=== PATIENT | male | born 1940 | race Caucasian/White ===

== ENCOUNTER 2024-10-04 00:58 | Inpatient (IN) | payer MEDICARE, SELFPAY ==
[2024-10-03 22:19] VITALS: BP 102/53
[2024-10-03 22:28] LABS: Glucose - Point of Care 470 mg/dl (70-99)
[2024-10-03 22:32] LABS: % Basophils 0.3 % (0-2); % Immature Granulocytes 0.5 % (0-0.5); % Lymphocytes 4.6 % (20.5-51.1); % Monocytes 5.6 % (1.7-9.3); Absolute Immature Granulocytes 0.1 10^3/uL (0-0.05); Absolute Lymphocytes 0.5 10^3/uL (1.2-3.4); Absolute Monocytes 0.6 10^3/uL (0.1-0.6); Absolute Neutrophils 9.8 10^3/uL (1.4-6.5); Hematocrit 43.7 % (39.0-52.0); Hemoglobin 14.3 g/dL (13.0-18.0); Mean Corp Hgb Conc. 32.7 g/dL (33.0-37.0); Mean Corpuscular Hgb 31.3 pg (27.0-31.0); Mean Corpuscular Volume 95.6 fL (80.0-94.0); Mean Platelet Volume 9.5 fL (7.4-10.4); Nucleated Red Blood Cells % 0 % (-); Platelet Count 233 10^3/uL (130-400); Red Blood Cell Count 4.57 10^6/uL (4.70-6.10); Red Cell Dist. Width 14.5 % (11.5-14.5); White Blood Cell Count 11.1 10^3/uL (4.8-10.8)
[2024-10-03 22:40] VITALS: BP 107/51
[2024-10-03 22:59] LABS: AST (SGOT) 37 U/L (17-59); Albumin 4.7 g/dl (3.5-5.0); Alkaline Phosphatase 106 U/L (38-126); Blood Urea Nitrogen 36 mg/dl (9-20); Calcium 9.8 mg/dl (8.4-10.2); Carbon Dioxide 9 mmol/L (22-30); Chloride 92 mmol/L (98-107); Glucose 485 mg/dl (70-99); Potassium 4.9 mmol/L (3.5-5.1); Sodium 127 mmol/L (135-145); Total Protein 6.6 g/dl (6.3-8.2); eGFR 46.19
[2024-10-03 23:29] LABS: ALT (SGPT) 37 U/L (0-50)
--- NOTE | 2024-10-03 23:32 | ED.GENMED ---
History of Present Illness
General
Chief Complaint: Blood Sugar Problem
Source: patient and family
Exam Limitations: none
Time Seen by Provider: 10/03/24 23:12
Nursing documentation reviewed up to this point in time: agreed with
History of Present Illness
History of Present Illness:
84-year-old male with past medical history of hyperlipidemia, atrial fibrillation, longstanding history of insulin-dependent diabetes on insulin pump presents to the emergency room for evaluation of hyperglycemia, abdominal discomfort and malaise.
Patient reports symptoms started 2 days ago and have been constant since that time. He reports his sugars have been trending upwards�he said previously sugars have never been higher than 280 and recently they have been 300+. Today sugars were over
500. He says that he is currently in the process of changing to a new insulin pump and thinks that his old pump may have been malfunctioning. He reports epigastric pain, myalgias, fatigue. He reports mild nausea. Reports mild dizziness. No
vomiting. No diarrhea. Denies polyuria and in fact reports decreased urine output. He has not any fevers, chills, cough, chest pain, shortness of breath or any other complaints. Follows with Dr. Wilcox for endocrinology.
Past History
Past History
ED Past Medical History: Arrthythmia (Paroxysmal atrial fibrillation), CAD, Cancer (Skin CA), Hypercholesterolemia, IDDM (Insulin pump), Hypothyroidism and Other (Skin cancer, colon polyps)
ED Past Surgical History: Cardiac (Ablation) and Other (Partial thyroidectomy)
Social History
Tobacco: Non-smoker
Alcohol: Daily (Beer 1-2)
Drug: None
Personal:
Living: with family
Employment: Retired
Family History
Family History: CAD; Negative Early CAD or Sudden
Review of Systems
Review of Systems
All Other Systems: ROS reviewed and negative except as documented in HPI and ROS
Constitutional: Reports fatigue; Denies fever or chills
EENT: Denies sore throat or runny nose
Respiratory: Denies cough or trouble breathing
Cardiac: Denies chest pain or palpitations
ABD/GI: Reports abdominal pain and nausea; Denies vomiting or diarrhea
: Denies flank pain
Musculoskeletal: Reports muscle pain (Myalgias); Denies neck pain or back pain
Neurological: Denies dizzy or headache
Phy Exam
Physical Exam
Physical Exam:
General: Awake, alert, oriented x3; no acute distress
Head: Normocephalic, atraumatic
Eyes: Conjunctiva normal, sclera anicteric
Throat: Airway intact, dry mucous membranes
Neck: Trachea midline, supple without meningismus
Lungs: Clear to auscultation bilaterally, no wheezing, rales, rhonchi
Heart: Regular rate and rhythm, no murmurs, gallops, or rubs
Abd: Soft, non distended, tender in the epigastrium
Neuro: No gross deficit
Skin: no rash
Extremities: Warm well-perfused with no edema
Scores
Heart Failure Risk
Heart Failure Risk Score: Not Applicable
Heart Score for Chest Pain Patients
STEMI patient?: Not applicable
Withdrawal Assessment of Alcohol
Withdrawal Assessment Completed?: Not applicable
Course
Orders/Labs/Results
Orders:
Orders
10/03/24 22:25
B-Hydroxybutyrate Urgent
Complete Blood Count/With Diff Urgent
Comprehensive Metabolic Panel Urgent
Lipase Urgent
Comment: ADDED
10/03/24 22:42
Electrocardiogram (*1) Urgent
Reason for Study: Chest Pain
EKG- Treatment ONCE
10/03/24 23:00
KCl 20 Meq/0.9%Sodchl 1000 ml [NSS with KCL 20 MEQ] 20 meq in 1,000 ml IV 250 mls/hr
10/03/24 23:13
Urinalysis Reflex To Culture Urgent
Date Specimen was Collected: 10/04/24
Time Specimen was Collected: 00:37
10/03/24 23:14
0.9% Sodium Chloride 1000 ml [Nss] 1,000 ml IV BOLUS
10/03/24 23:16
Bedside Glucose- Treatment Q1H
Lactated Ringers [Lr] 1,000 ml IV BOLUS
10/03/24 23:23
Venous Blood Gas Urgent
%Oxygen/Room Air: 96
10/03/24 23:28
HYDROmorphone [Dilaudid] 0.5 mg IV NOW STA
Insulin Human Regular [Novolin R] 8 units IV NOW STA
10/03/24 23:30
Add On- LAB Urgent
Tests Added?: lipase
Basic Metabolic Panel Q2H
10/03/24 23:31
Reg Insulin 100 Units/100 ml [Novolin R Insulin Infusion] 100 units in 100 ml IV NOW
10/03/24 23:37
COVID-19 Antigen Urgent
Source: Nasal Swab
Troponin I Urgent
Influenza A+B Rapid Molecular Urgent
NIKI Source: Nasal Swab
Specimen Description:
10/04/24 00:30
CT Abd/pelvis W Iv Cont Urgent
Reason For Exam: upper abd pain, DKA
10/04/24 00:44
Admit/Transfer Patient As Directed
Co-Sign Provider:
Level of Care: Inpatient admission
Assign to:: IMU- Intermediate Care
Physician / Group: hospitalist
Diagnosis: DKA
Reason for Hospitalization: DKA
Expected length of stay greater than two midnights?: Yes
ELOS- Estimated Length of Stay in days: 2
I certify the patient meets the requirements for IP care: Yes
PRN Pain Medication Management As Directed
May give lesser potent ordered pain med per pt: Yes
preference::
Protocol:: Medication orders for pain may be administered in a
manner that supports deferring to patient preference
when the pt is:
- Requesting an ordered lesser potent pain medication.
Least to most potent pain medications are defined
as: acetaminophen < NSAID < tramadol < opioids
(morphine, oxycodone, hydromorphone).
- Requesting a lesser dose of the same medication IF
ORDERED.
- Requesting a less intrusive route of administration
if both routes are prescribed by the provider (PO <
IV).
10/04/24 00:46
Code Status As Directed
Resuscitation Status: Full Code
10/04/24 02:16
Basic Metabolic Panel Q2H
10/04/24 03:30
Basic Metabolic Panel Q2H
Abnormal Lab Results
10/03/24 10/03/24 10/03/24
22:22 22:25 23:23
WBC 11.1 H 10^3/uL
(4.8-10.8)
RBC 4.57 L 10^6/uL
(4.70-6.10)
MCV 95.6 H fL
(80.0-94.0)
MCH 31.3 H pg
(27.0-31.0)
MCHC 32.7 L g/dL
(33.0-37.0)
Abs Immat Gran (auto) 0.1 H 10^3/uL
(0-0.05)
Absolute Neuts (auto) 9.8 H 10^3/uL
(1.4-6.5)
Absolute Lymphs (auto) 0.5 L 10^3/uL
(1.2-3.4)
Neutrophils % 89.0 H %
(42.2-75.2)
Lymphocytes % 4.6 L %
(20.5-51.1)
VBG pH 7.23 L
(7.32-7.43)
VBG pO2 54 H mmHg
(30-50)
VBG HCO3 14.7 L mmol/L
(22-27)
Sodium 127 L mmol/L
(135-145)
Chloride 92 L mmol/L
(98-107)
Carbon Dioxide 9 L* mmol/L
(22-30)
BUN 36 H mg/dl
(9-20)
Creatinine 1.5 H mg/dL
(0.7-1.3)
Glucose 485 H* mg/dl
(70-99)
Urine Ketones
Urine Glucose
B-Hydroxybutyrate 4.37 H mmol/L
(0.02-0.27)
POC Glucose 470 H* mg/dl
(70-99)
10/04/24
00:43
WBC
RBC
MCV
MCH
MCHC
Abs Immat Gran (auto)
Absolute Neuts (auto)
Absolute Lymphs (auto)
Neutrophils %
Lymphocytes %
VBG pH
VBG pO2
VBG HCO3
Sodium
Chloride
Carbon Dioxide
BUN
Creatinine
Glucose
Urine Ketones 3+ A
(Negative)
Urine Glucose 4+ A
(Negative)
B-Hydroxybutyrate
POC Glucose
10/03/24 22:25
Vital Signs
Initial and Last Documented VS:
Initial Vital Signs
Temp Pulse Resp BP Pulse Ox
36.6 C 93 19 102/53 98
10/03/24 22:19 10/03/24 22:19 10/03/24 22:19 10/03/24 22:19 10/03/24 22:19
Last Documented Vital Signs
Temp Pulse Resp BP Pulse Ox
36.6 C 75 19 114/55 93
10/03/24 22:19 10/04/24 01:45 10/04/24 01:45 10/04/24 01:00 10/04/24 01:45
MDM/Problems Addressed
Differential Diagnosis Includes:
DKA, pancreatitis, cholelithiasis/cholecystitis, anginal equivalent/ACS
MDM/Problems Addressed:
84-year-old male presents for evaluation of hyperglycemia and abdominal discomfort, malaise over the past 2 days. He believes his insulin pump may be malfunctioning. Vitals and exam as above. His Accu-Chek in triage was 470. He had labs sent in
triage including a CBC which showed a leukocytosis to 11.1. CMP confirms glucose 45, anion gap metabolic acidosis with bicarb of 9 and a gap of 26. He has renal insufficiency with creatinine 1.5 from baseline of 0.7. LFTs are normal. Added
lipase. EKG shows sinus rhythm no STEMI will add troponin with his epigastric discomfort and nausea. Will check venous blood gas and acetone level. Will check COVID and flu swabs. Check CT abdomen pelvis. Will provide fluid boluses. Potassium
4.9 will start on maintenance fluids with potassium supplementation. Start insulin bolus and infusion for DKA. Reassess after the above, plan for admission pending initial evaluation and resuscitation.
CT abdomen pelvis possible esophagitis but no other acute intra-abdominal pathology. Patient was discussed with hospitalist to be admitted.
Chronic conditions affecting care:
Diabetes
Acute Exacerbation and/or Progression of Chronic Illness:
Acute DKA treated as above
Acute dehydration treated with fluids
*Radiology
Radiology exam reviewed: radiology read reviewed
*Pulse Oximetry
Patient hypoxic: no
*EKG
Interpreted by ED Provider?: Yes
Heart Rate: 87
Rate: normal
Rhythm: sinus
[place]: left axis deviation
Interval: normal interval
QRS Pattern: left vent hypertrophy
Ischemia: other (Nonspecific T wave abnormalities)
*Critical Care Note
Total Time (30-74mins, 75-104mins- exclusive of procedures): 33
comment:
Critical care statement: A total of 33 minutes of critical care time was provided for this patient. This includes management of unstable vital signs, evaluation of the patient at bedside, frequent reassessment, discussion with
consultants/hospitalist, and review of pertinent medical records. This time was separate from time utilized to perform any aforementioned documented procedures
Data Reviewed
Review of Other/Old Records Reveals: Labs and Records
Source: patient and family
Patient Management
Discussion with other providers: Hospitalist (Discussed with hospitalist)
Escalation/DeEscalation of care consider admission/obs:
Admission indicated
ED Attending Note
-
Portions of this chart may have been created with voice recognition software.� Occasional wrong word or��sound alike� substitutions may have occurred due to the inherent limitations of voice recognition software.
Discharge Plan
Departure
Patient Disposition: Admit
Date of Disposition: 10/04/24
Time of Disposition: 00:44
Admit to doctor: Loni
Presentation/result/management discussed w/ accepting MD/DO: Hospitalist
Discharge Problem:
Diabetic ketoacidosis
Interventions
Interventions:
*Risk Screen - Suicide Last Done: 10/03/24 22:19
*General Assessment Last Done: 10/04/24 00:08
*Neglect/Abuse Screening Last Done: 10/03/24 22:19
*ED COVID-19 Vaccine History Last Done: 10/04/24 00:08
ED- Neurological Assessment Last Done: 10/04/24 00:08
[2024-10-03 23:35] LABS: Venous Blood Gas B.E. -11.9 mmol/L (-4 to +4); Venous Blood Gas HCO3 14.7 mmol/L (22-27); Venous Blood Gas O2 Sat % 84.1 %; Venous Blood Gas pCO2 35 mmHg (35-48); Venous Blood Gas pH 7.23 (7.32-7.43); Venous Blood Gas pO2 54 mmHg (30-50)
[2024-10-03] MEDS: LR 1000 IV (23:39)
[2024-10-03] MEDS: DILAUDID 0.5 MG IV (23:40)
[2024-10-03] MEDS: NSS 1000 IV (23:40)
[2024-10-03 23:42] LABS: Venous Blood Gas O2 Therapy 96%
[2024-10-03] MEDS: NSS with KCL 20 MEQ 1000 IV (23:52)
[2024-10-03] MEDS: NOVOLIN R 8 UNITS IV (23:55)
[2024-10-03] MEDS: NOVOLIN R INSULIN INFUSION 100 IV (23:55)
[2024-10-04] VITALS (12 sets, daily range): BP systolic 94–133; BP diastolic 48–68; PULSE 59; O2SAT 98; BMI 25.9
[2024-10-04 00:05] LABS: COVID-19 Antigen Negative (Negative)
[2024-10-04 00:12] LABS: Troponin I < 0.012 ng/ml
--- NOTE | 2024-10-04 00:33 | HPS.HSE ---
Family Physician
-
Family Physician: NO INTERVIEW UNKNOWN
Chief Complaint
-
Elevated blood glucose
History of Present Illness
This is a 84-year-old male with past medical history of type 1 diabetes on insulin pump, paroxysmal atrial fibrillation status post ablation currently on anticoagulation, hyperlipidemia, hypothyroid presenting to the emergency department with
elevated blood glucose.
Patient reports that initially he had elevated blood glucose starting about 4 days ago. He had recently started a new insulin pump. It is a Medtronic device. He reports that he never had any issues with his prior pump. Due to the elevated blood
glucose he was given himself manual insulin shots. Last night his sugar was extremely high but he was able to bring it down with subcutaneous insulin injections. He went to go dinner with friends today and when he came back home he had a sugar
greater than 500 and he came to the emergency department. Patient reported that when the sugar was high he had epigastric discomfort. Mild nausea. He denies any vomiting. Patient himself is unaware of any sick contacts. He denies any cough
fevers or chills. He denies any diarrhea. He denies any vomiting. He is somewhat concerned that he may have either had a malfunctioning pump or NovoLog in the pump. Patient denies any medication changes. He denies any chest pain
palpitations lightheadedness or dizziness. He has not had much polyuria or polydipsia. He has been tolerating p.o. prior to coming to the emergency department.
In the emergency department he was afebrile, blood pressure was 120/50 with a pulse of 83 satting 95% on room air. ECG with normal sinus rhythm and left anterior fascicular block unchanged on prior. Troponin negative. CBC was unremarkable.
Chemistries notable for a bicarb of 9, creatinine of 1.5 with a BUN of 36. Potassium was 4.9 and glucose 480. Sodium was 127. COVID test was negative. Influenza test was negative. Lipase pending. LFTs normal. CT of the abdomen and pelvis is
pending.
Medical History
Past Medical History
Past Medical History: Reports Arrhythmia (Proximal atrial fibrillation status post ablation), Hypercholesterolemia, Hypothyroidism, IDDM and Psychiatric
Past Surgical History: Reports Tonsilectomy, Urological (Status post TURP) and Other (Right thyroid lobectomy and isthmusectomy)
Social History
Tobacco: Non-smoker
Alcohol: None
Drug: None
Personal:
Living: With Family
Employment: Retired
Family History
Family History: Not pertinent
Allergies / Home Medications
Allergies reflects when Allergies were last updated in [facility].
Home Medications with original date entered in [facility]
Allergy/Medication List:
Allergies
Allergy/AdvReac Type Severity Reaction Status Date / Time
No Known Allergies Allergy Verified 10/03/24 22:19
Home Medications
rosuvastatin 5 mg tablet 5 mg PO HS 02/07/09
nitroglycerin 0.4 mg sublingual tablet 0.4 mg sublingual [id number] PRN chest pain 07/11/14
warfarin 1 mg tablet (Jantoven) 1.5 mg PO QPM 07/11/14
ramipril 10 mg capsule 10 mg PO BID 07/14/14
levothyroxine 50 mcg tablet 100 mcg PO TUSA 11/13/18
Patient's Own Insulin Pump 0 sliding scale dose SC .CONTINUOUS 10/03/24
albuterol sulfate 90 mcg/actuation aerosol inhaler 2 puff inhalation R Q6HPRN PRN sob 10/03/24
amlodipine 2.5 mg tablet 2.5 mg PO DAILY 10/03/24
cholecalciferol (vitamin D3) 25 mcg (1,000 unit) tablet (Vitamin D3) 25 mcg PO DAILY 10/03/24
escitalopram oxalate 10 mg tablet 10 mg PO HS 10/03/24
levothyroxine 50 mcg tablet 50 mcg PO SUMOWETHFR 10/03/24
warfarin 5 mg tablet 5 mg PO QPM 10/03/24
Review of Systems
-
History Source: Patient
Constitutional: Reports No Symptoms
EENT: Reports No Symptoms
Respiratory: Reports No Symptoms
Cardiac: Reports No Symptoms
Abdomen/GI: Reports Abdominal Pain
: Reports No Symptoms
Musculoskeletal: Reports No Symptoms
Skin: Reports No Symptoms
Neurological: Reports No Symptoms
Endocrine: Reports No Symptoms
Hematologic/Lymphatic: Reports No Symptoms
Psych: Reports No Symptoms
Physical Exam
Vital Signs
Vital Signs
Temp Pulse Resp BP Pulse Ox
97.9 F 83 19 119/51 95
10/03/24 22:19 10/04/24 00:00 10/04/24 00:00 10/04/24 00:00 10/04/24 00:00
Physical Exam
General: Well Developed, Well Nourished, No Apparent Distress and Comfortable
HEENT: NormoCephalic, Anicteric, Moist mucous membranes and Atraumatic
Respiratory: Clear
Cardiac: S1/S2 and Regular Rhythm
Breast: Deferred by me
GI: Soft, Non Tender, Non Distended and Normal Bowel Sounds
Rectal: Deferred by Provider
Genito-urinary: Deferred by me
Musculoskeletal: No Clubbing, No Cyanosis and No Edema
Skin: Warm
Neuro: AO x 3 and Nonfocal/grossly intact
Hematologic/Lymphatic: No Lymphadenopathy
Psych: Calm
Laboratory Results
-
10/03/24 22:25
Laboratory Results
Total Bilirubin 1.0 mg/dl (0.2-1.3) 10/03/24 22:25
AST 37 U/L (17-59) 10/03/24 22:25
ALT 37 U/L (0-50) 10/03/24 22:25
Alkaline Phosphatase 106 U/L (38-126) 10/03/24 22:25
Troponin I < 0.012 ng/ml 10/03/24 23:37
Data Reviewed
-
Medical Tests (Nuc Med, Echo, EKG etc): Image Personally Visualized and interpreted
Lab Data: Labs Reviewed by me
Old Records: Reviewed
Impression/Plan
-
IMPRESSION:
DKA. Bicarb 9, elevated anion gap, elevated blood glucose to 480. Patient on home insulin pump. Suspect either pump malfunction or insulin in the pump. Patient has a Medtronic device. Denies any prior history of pump dysfunction.
Patient has no acute ischemic, infectious or hemodynamic abnormality. He is mildly dehydrated.
PLAN:
DKA - pH 7.23/35/14. Serum Bicarb 9. Glucose 485. AGAP 26. Cr 1.5
- admit to imu
- insulin DKA protocol
- iv fluids per protocol
- blood glucose q1h
- serum chem q 4 h
- clear liquid diet for now
- follow up lipase and CT a/p
- may need medtronic to examine device in am, definitely prior to d/c
AFIB - Rate controlled and HD stable.
- continue coumadin 6.5mg daily
- no rate control per home regimen
Hypothyroid
- continue synthroid per home regimen
DVT PPX - lovenox s
Code status - full code
[2024-10-04 00:49] LABS: Urine Albumin Negative (Neg - Trace); Urine Bilirubin Negative (Negative); Urine Character Clear (Clear); Urine Color Yellow; Urine Glucose 4+ (Negative); Urine Ketone 3+ (Negative); Urine Leukocyte Negative (Negative); Urine Nitrite Negative (Negative); Urine Occult Blood Negative (Negative); Urine Urobilinogen Negative (Neg - 1+)
[2024-10-04 01:00] LABS: Glucose - Point of Care 324 mg/dl (70-99)
[2024-10-04 01:32] LABS: B-Hydroxybutyrate 4.37 mmol/L (0.02-0.27); Lipase 53 U/L (23-300)
[2024-10-04 02:16] LABS: Glucose - Point of Care 262 mg/dl (70-99)
[2024-10-04 02:44] LABS: Blood Urea Nitrogen 36 mg/dl (9-20); Calcium 8.7 mg/dl (8.4-10.2); Carbon Dioxide 18 mmol/L (22-30); Chloride 101 mmol/L (98-107); Glucose 259 mg/dl (70-99); Potassium 4.5 mmol/L (3.5-5.1); Sodium 129 mmol/L (135-145); eGFR > 60.00
[2024-10-04 03:21] LABS: Glucose - Point of Care 224 mg/dl (70-99)
[2024-10-04 03:39] LABS: Hematocrit 37.7 % (39.0-52.0); Hemoglobin 12.9 g/dL (13.0-18.0); Mean Corp Hgb Conc. 34.2 g/dL (33.0-37.0); Mean Corpuscular Hgb 31.4 pg (27.0-31.0); Mean Corpuscular Volume 91.7 fL (80.0-94.0); Mean Platelet Volume 9.7 fL (7.4-10.4); Platelet Count 213 10^3/uL (130-400); Red Blood Cell Count 4.11 10^6/uL (4.70-6.10); Red Cell Dist. Width 14.2 % (11.5-14.5); White Blood Cell Count 10.7 10^3/uL (4.8-10.8)
[2024-10-04 04:12] LABS: Blood Urea Nitrogen 34 mg/dl (9-20); Calcium 9.2 mg/dl (8.4-10.2); Carbon Dioxide 18 mmol/L (22-30); Chloride 100 mmol/L (98-107); Glucose 213 mg/dl (70-99); Potassium 4.5 mmol/L (3.5-5.1); Sodium 130 mmol/L (135-145); eGFR > 60.00
[2024-10-04 04:29] LABS: Glucose - Point of Care 187 mg/dl (70-99)
[2024-10-04] MEDS: D5/0.45%NSS with KCL 20 MEQ 1000 IV ×2 (05:15→12:19)
[2024-10-04 05:31] LABS: Glucose - Point of Care 136 mg/dl (70-99)
[2024-10-04 06:37] LABS: Glucose - Point of Care 127 mg/dl (70-99)
[2024-10-04] MEDS: SYNTHROID 50 MCG PO (06:47)
[2024-10-04 07:33] LABS: Glucose - Point of Care 159 mg/dl (70-99)
[2024-10-04 08:16] LABS: INR 2.75
--- NOTE | 2024-10-04 08:16 | PN.DE.MGMTRT ---
Addendum entered and electronically signed by MYRTLE Cao 10/04/24 15:43:
Returned to assist patient with setting up his new insulin Pump
Pt has the Medtronic MiniMed 670G insulin pump with NovoLog insulin
Was able to set up new [place] with insulin and prime new infusion set tubing.
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 Discussed and emphasized need for pt avoid repeated use of the same area as this will cause lumps, hardening and impair insulin absorption.
With careful examination of the LLQ, was able to identify a new infusion site in his LLQ. cannula was inserted without difficulties and insulin infusion was resumed via his pump.
Discussed with Hospitalist Dr. Love and Pt's Nurse. Plan is to stop insulin drip, check glucose Q1 hr x2 from start of insulin pump.
Pt was instructed to call office and provide blood sugars as a follow up on Monday
Original Note:
Insulin Management
- -
10/04/2024: Diabetes Management Consult
84 year old male w/PMH: PA-Fib s/p ablation on OAC, HLD, Hypothyroid and T1DM on insulin pump. Pt presented to the ED with elevated blood glucose.
Patient reports that initially he had elevated blood glucose starting about 4 days ago. He was recently started on a new insulin pump- which he hasn't started using. He is still using this old Medtronic 630 insulin pump with NovoLog, reports that
he never had any issues with his prior pump.
Pt is awake, alert, oriented, sitting up in bed, states he is very nervous, able to discuss diabetes care. at bedside, very tearful, states her is increasingly becoming more forgetful and she is worried him.
Patient states that he doesn't know what happened to cause this event that landed him in the hospital. States he noted his blood sugar was >500 prior to meeting up with friends for dinner. He gave himself an insulin shot and his blood sugar came
down. However, he noticed that his blood sugar was back up before bedtime greater than 500 and he came to the ER.
In the ER he was noted for DKA nad was started on DKA protocol. His gap has closed.
Will plan to transition him back to his insulin pump. Pt states that his supplies are at home and is going to get them.
Will return later this afternoon and assist with setting up his new pump.
Diabetes History
- -
Type of Diabetes: 1
Pre-Admission Diabetes Regimen
10/03/24 10/03/24 10/04/24
22:25 23:30 02:16
Creatinine 1.5 H Cancelled 1.0
10/04/24 10/04/24
03:13 03:30
Creatinine 1.0 Cancelled
Insulin Pump Settings
IP Diabetes Regimen
10/03/24 10/03/24 10/03/24
22:22 22:25 23:30
Glucose 485 H* Cancelled
POC Glucose 470 H*
10/04/24 10/04/24 10/04/24
00:59 02:14 02:16
Glucose 259 H
POC Glucose 324 H 262 H
10/04/24 10/04/24 10/04/24
03:08 03:13 03:30
Glucose 213 H Cancelled
POC Glucose 224 H
10/04/24 10/04/24 10/04/24
04:17 05:19 06:24
Glucose
POC Glucose 187 H 136 H 127 H
10/04/24
07:22
Glucose
POC Glucose 159 H
Patient Education
[2024-10-04 08:33] LABS: Glucose - Point of Care 193 mg/dl (70-99)
[2024-10-04] MEDS: ALTACE 10 MG PO (08:34)
--- NOTE | 2024-10-04 09:00 | W.PN.HOSP.TC ---
Addendum entered and electronically signed by Gianni Hooks MD 10/04/24 21:33:
Attending Addendum:
I saw and evaluated the patient. I reviewed the resident�s note and agree with findings and plan as documented in the resident�s note. Sub: feels greatly improved. complains of urinary frequency. wants to go home. Full 12 point ROS reviewed and
negative except as documented Exam: Vitals reviewed in chart GEN-NAD heart RRR lungs clear abd soft LE no edema
DKA-
-resolved
-homer diet
-malfunctioning insulin pump
-restarted new pump and functioning appropriately
-apprecaite DM TONGUE CARRIER input
AFIB - Rate controlled and HD stable.
- continue coumadin 6.5mg daily
- no rate control per home regimen
Hypothyroid
- continue synthroid per home regimen
HLD- cont rosuvastatin
Depression- cont lexapro
HTN- cont ramipril and amlodipine
DVT PPX - lovenox
Code status - full code
Time spent coordinating care, DC planning, review of DC plan of care with resident, transition of care, review of records, med rec/scripts sent electronically, consults, notes, d/w consultants, nursing, DM TONGUE CARRIER and CM�32 mins
Original Note:
Today's Communication/Plan
-
DM nurse practitioner to set up new pump
Continue DKA management per protocol
Repeat UA
Advance diet to carb controlled
Downgrade to telemetry and potentially discharge later today
Assessment / Plan
Assessment / Plan
84-year-old male who presented with malaise, epigastric pain and mild nausea from 2 days ago. No URI or UTI symptoms.
Denied any fever, diarrhea or vomiting. On arrival, vitals stable. Initial labs showed blood glucose of 485, bicarb 9 (anion gap 26), and elevated creatinine (1.5). EKG normal. Abdominopelvic CT scan in the ED unremarkable. Troponin negative and
lipase normal
#DKA most likely in the setting of malfunctioning/(?) pump
- Patient had noticed blood glucose being higher recently and had suspected malfunctioning pump
- DM TONGUE CARRIER consulted-will set him up with a new pump today
- Continue insulin drip per DKA protocol (currently receiving 2 units/hr)
- Continue H/S D5 with potassium per protocol
- Accu-Chek q1h
- Anion gap this a.m. 12-will check BMP at noon-if anion gap closed, will stop insulin drip and transition to pump
- Can advance diet to carb-controlled
- Hemoglobin A1c 7.2
- PT OT
-Patient can be downgraded and potentially discharged later today
# Urinary frequency
-Most probably in the setting of hyperglycemia
-Does not report any other urinary symptoms
-Will check UA
#Paroxysmal Afib
- Currently rate and rhythm controlled
- Continue coumadin 6.5mg daily as prior to admission
# Essential hypertension
-Continue amlodipine and ramipril per home regimen
# Hypothyroidism
- Continue synthroid per home regimen
#DVT PPX
- Lovenox 40
Code status - full code
Anticipated Discharge: Within 24 hours
Subjective/Interval History
-
Date of Service: October 04, 2024
Patient mentions his abdominal pain and nausea has completely gone away. Feels 100% better. Does not offer any complaints except urinary frequency.
Objective Data
-
Labs:
Laboratory Results
10/03/24 10/03/24 10/04/24
22:25 23:30 02:16
WBC 11.1 H
Hgb 14.3
Hct 43.7
Plt Count 233
PT
INR
Sodium 127 L Cancelled 129 L
Potassium 4.9 Cancelled 4.5
Chloride 92 L Cancelled 101
Carbon Dioxide 9 L* Cancelled 18 L
BUN 36 H Cancelled 36 H
Creatinine 1.5 H Cancelled 1.0
Glucose 485 H* Cancelled 259 H
Calcium 9.8 Cancelled 8.7
Total Bilirubin 1.0
AST 37
ALT 37
Alkaline Phosphatase 106
10/04/24 10/04/24 10/04/24
03:13 03:30 06:32
WBC 10.7
Hgb 12.9 L
Hct 37.7 L
Plt Count 213
PT Cancelled
INR Cancelled
Sodium 130 L Cancelled
Potassium 4.5 Cancelled
Chloride 100 Cancelled
Carbon Dioxide 18 L Cancelled
BUN 34 H Cancelled
Creatinine 1.0 Cancelled
Glucose 213 H Cancelled
Calcium 9.2 Cancelled
Total Bilirubin
AST
ALT
Alkaline Phosphatase
10/04/24 10/04/24
06:58 07:25
WBC
Hgb
Hct
Plt Count
PT Pending 29.0 H
INR Pending 2.75
Sodium
Potassium
Chloride
Carbon Dioxide
BUN
Creatinine
Glucose
Calcium
Total Bilirubin
AST
ALT
Alkaline Phosphatase
Vital Signs:
Vital Signs
Temp Pulse Resp BP Pulse Ox
97.8 F 63 13 114/57 95
10/04/24 07:10 10/04/24 08:34 10/04/24 07:00 10/04/24 08:34 10/04/24 07:00
I&O
10/03/24 10/04/24 10/05/24
06:59 06:59 06:59
Intake Total 480 / 480
Output Total 1350 / 1350 250 / 250
Balance -870 / -870 -250 / -250
Review of Systems
-
History Source: Patient
All other systems: Reviewed and negative
Genitourinary: Reports Frequency
Physical Exam
-
General: Well Developed and No Apparent Distress
HEENT: Normocephalic, Atraumatic and Other (Mildly dehydrated)
Respiratory: Clear to Auscultation
Cardiac: Regular Rhythm and S1/S2; Negative Murmur, Rub or Gallop
GI: Soft, Nontender, Nondistended and Normal Bowel Sounds; Negative Organomegaly
Genito-urinary: No Costovertebral Tender
Musculoskeletal: No Clubbing, No Cyanosis and No Edema
Skin: Negative Rash
Neuro: Awake, Alert, Oriented and Nonfocal/Grossly Intact
Psych: Calm
[2024-10-04 09:36] LABS: Glucose - Point of Care 153 mg/dl (70-99)
[2024-10-04 10:45] LABS: Glucose - Point of Care 131 mg/dl (70-99)
[2024-10-04 10:58] LABS: INR 2.97; PT 30.8 Sec (11.4-14.6)
[2024-10-04 11:19] LABS: Blood Urea Nitrogen 23 mg/dl (9-20); Calcium 8.7 mg/dl (8.4-10.2); Carbon Dioxide 25 mmol/L (22-30); Chloride 104 mmol/L (98-107); Estimated Creatinine Clearance 74 ml/min; Glucose 122 mg/dl (70-99); Potassium 4.3 mmol/L (3.5-5.1); Sodium 133 mmol/L (135-145); eGFR > 60.00
[2024-10-04 11:33] LABS: Glucose - Point of Care 153 mg/dl (70-99)
[2024-10-04 12:15] LABS: Urine Albumin Negative (Neg - Trace); Urine Bilirubin Negative (Negative); Urine Character Clear (Clear); Urine Color Yellow; Urine Glucose Negative (Negative); Urine Ketone Negative (Negative); Urine Leukocyte Negative (Negative); Urine Nitrite Negative (Negative); Urine Occult Blood Negative (Negative); Urine Urobilinogen Negative (Neg - 1+)
[2024-10-04 12:35] LABS: Glucose - Point of Care 152 mg/dl (70-99)
[2024-10-04 13:50] LABS: Glucose - Point of Care 122 mg/dl (70-99)
--- NOTE | 2024-10-04 14:30 | PTCARENOTE ---
1430: Insulin gtt turned off per order.
[2024-10-04 15:47] LABS: Glucose - Point of Care 160 mg/dl (70-99)
[2024-10-04] MEDS: PROTONIX 40 MG PO (15:54)
--- NOTE | 2024-10-04 16:13 | PTCARENOTE ---
Patient AOx3. Patient is forgetful and anxious. Patient needs frequent reminders. Bed and chair alarm on and audible. Patient on RA. VSS. NSR with first degree on monitor with periods of bradycardia. Frequent urination. Accuchecks completed per
order. staff educator to bedside to educate patient on insulin pump. Patients at bedside. Call samson within reach, bed in lowest position, and bed of wheels locked.
--- NOTE | 2024-10-04 16:25 | CM ---
Patient with Dx DKA. Room air. Receiving IVF, Patient's Insulin Pump.
Spoke with patient's daughter Amelia;
the patient resides with his in a split level house.
Amelia says patient he felt unwell yesterday however is usually very sharp mentally, active, works out and drives.
The patient was independent in ADLs and ambulation.
DME - medtronic insulin pump, glucometer
No prior VN or SNF
PCP - Boone Rasmussen
Pharmacy - [facility]
No CM d/c needs identified.
Plan home.
[2024-10-04 16:44] LABS: Glucose - Point of Care 193 mg/dl (70-99)
[2024-10-04] MEDS: PT'S OWN INSULIN PUMP - NovoLOG 1 UNIT SC (16:46)
[2024-10-04] MEDS: COUMADIN 6.5 MG PO (17:03)
--- NOTE | 2024-10-05 19:17 | W.DCSUMMARY ---
Addendum entered and electronically signed by Gianni Hooks MD 10/07/24 10:01:
Read, reviewed, and agree. See same day progress note for additional details.
Chandana Hooks MD
Original Note:
Documented by User: Damion Sanchez MD, Resident 10/05/24 20:40
Discharge Summary
Discharge Data
Date of Admission: 10/04/24
Date of Discharge: 10/04/24
-
Pending Results: No
Hospital Course
Patient is an 84-year-old male who presented with malaise, epigastric pain and mild nausea from 2 days prior to admission. On arrival, hemodynamics was stable. Initial labs showed blood glucose of 485, bicarb 9 (anion gap 26), and elevated
creatinine (1.5). EKG was normal. Abdominopelvic CT scan in the ED was unremarkable. Troponin and lipase were within normal limits. Patient had recently noticed blood glucose levels being higher than usual and had suspected his insulin pump might be
malfunctioning. He was admitted to IMU for DKA management.
Problem list
1. DKA most likely in the setting of malfunctioning/ pump
DKA was managed per protocol with insulin drip, IV fluids and hourly AccuCheck . Patient's symptoms resolved within hours and BMP was repeated x2, showing closed anion gap. Diet was gradually advanced and patient was able to tolerate diet. DM nurse
practitioner was consulted and was able to successfully set up a new functioning pump.
2. Chronic conditions including paroxysmal Afib, hypothyroidism, HLD, depression and essential HTN were well-controlled with home meds. Patient remained rate and rhythm controlled during stay.
Important imaging findings :
1. Mild wall thickening of the distal esophagus, which may be related to mild esophagitis and/or acid reflux.
2. No evidence of intestinal obstruction, bowel inflammatory process, nephrolithiasis, hydronephrosis, cholecystitis, or abscess formation.
Discharge Plan
-
Patient Disposition: Home (Routine Discharge)
Discharge Diagnosis/Procedures: DKA most likely due to malfunctioning insulin pump
Condition: Good
Diet: Diabetic, Carb Controlled
Activity: As tolerated
Driving Restrictions: As prior to admission
Bathing Restrictions: None
Instructions: Diabetic ketoacidosis, Diabetic ketoacidosis - Discharge instructions
Referrals:
Boone Rasmussen MD [Family Provider] - in less than 1 week
Prescriptions:
Continued
rosuvastatin 5 MG tablet
5 mg PO HS
nitroglycerin 0.4 MG tablet, sublingual
0.4 mg sublingual [id number] PRN (Reason: chest pain)
warfarin [Jantoven] 1 MG tablet
1.5 mg PO QPM
Rx Instructions:
take with 5mg for total of 6.5mg
ramipril 10 MG capsule
10 mg PO BID
levothyroxine 50 MCG tablet
100 mcg PO TUSA
amlodipine 2.5 mg Tablet
2.5 mg PO DAILY
levothyroxine 50 mcg Tablet
50 mcg PO SUMOWETHFR
warfarin 5 mg Tablet
5 mg PO QPM
Rx Instructions:
take with 1.5mg for total of 6.5mg
albuterol sulfate 90 mcg/actuation Hfa Aerosol Inhaler
2 puff INHALATION R Q6HPRN PRN (Reason: sob)
escitalopram oxalate 10 mg Tablet
10 mg PO HS
cholecalciferol (vitamin D3) [Vitamin D3] 25 mcg (1,000 unit) Tablet
25 mcg PO DAILY
Patient's Own Insulin Pump
0 sliding scale dose SC .CONTINUOUS
Patient Comments:
10/03/24: Patient uses Novolog
Discharge Orders:
Discharge Patient (As Directed); Ordered 10/04/24
Ordered By: Damion Sanchez
Discharge Date and Time
Discharge Date/Time: 10/04/24 17:16
Print Language: [email or web address]

Documented by User: Gianni Hooks MD 10/07/24 10:01
Discharge Summary
Discharge Data
Date of Admission: 10/04/24
Date of Discharge: 10/07/24
Discharge Plan
-
Patient Disposition: Home (Routine Discharge)
Discharge Diagnosis/Procedures: DKA most likely due to malfunctioning insulin pump
Condition: Good
Diet: Diabetic, Carb Controlled
Activity: As tolerated
Driving Restrictions: As prior to admission
Bathing Restrictions: None
Instructions: Diabetic ketoacidosis, Diabetic ketoacidosis - Discharge instructions
Referrals:
Boone Rasmussen MD [Family Provider] - in less than 1 week
Prescriptions:
Continued
rosuvastatin 5 MG tablet
5 mg PO HS
nitroglycerin 0.4 MG tablet, sublingual
0.4 mg sublingual [id number] PRN (Reason: chest pain)
warfarin [Jantoven] 1 MG tablet
1.5 mg PO QPM
Rx Instructions:
take with 5mg for total of 6.5mg
ramipril 10 MG capsule
10 mg PO BID
levothyroxine 50 MCG tablet
100 mcg PO TUSA
amlodipine 2.5 mg Tablet
2.5 mg PO DAILY
levothyroxine 50 mcg Tablet
50 mcg PO SUMOWETHFR
warfarin 5 mg Tablet
5 mg PO QPM
Rx Instructions:
take with 1.5mg for total of 6.5mg
albuterol sulfate 90 mcg/actuation Hfa Aerosol Inhaler
2 puff INHALATION R Q6HPRN PRN (Reason: sob)
escitalopram oxalate 10 mg Tablet
10 mg PO HS
cholecalciferol (vitamin D3) [Vitamin D3] 25 mcg (1,000 unit) Tablet
25 mcg PO DAILY
Patient's Own Insulin Pump
0 sliding scale dose SC .CONTINUOUS
Patient Comments:
10/03/24: Patient uses Novolog
Discharge Orders:
Discharge Patient (As Directed); Ordered 10/04/24
Ordered By: Damion Sanchez
Discharge Date and Time
Discharge Date/Time: 10/04/24 17:16
Print Language: [email or web address]
== END 2024-10-04 17:16 | disposition home or self-care (01) | DRG 919 ==
LOC: IMU 00:58
PROVIDERS: Nurse Practitioner Acute Care; Student in an Organized Health Care Education/Training Program; ADMITTING PHYSICIAN Internal Medicine; ATTENDING PHYSICIAN Family Medicine; EMERGENCY PHYSICIAN Emergency Medicine; FAMILY PHYSICIAN Internal Medicine
DX: T85.614A Breakdown (mechanical) of insulin pump, initial encounter (principal); E10.10 Type 1 diabetes mellitus with ketoacidosis without coma; T38.3X6A Underdosing of insulin and oral hypoglycemic [antidiabetic] drugs, initial encounter; E03.9 Hypothyroidism, unspecified; E78.00 Pure hypercholesterolemia, unspecified; E86.0 Dehydration; F32.A Depression, unspecified; I10 Essential (primary) hypertension; I48.0 Paroxysmal atrial fibrillation; I25.10 Atherosclerotic heart disease of native coronary artery without angina pectoris; I44.4 Left anterior fascicular block; Y74.2 Prosthetic and other implants, materials and accessory general hospital and personal-use devices associated with adverse incidents; Z79.01 Long term (current) use of anticoagulants; Z79.4 Long term (current) use of insulin; Z11.52 Encounter for screening for COVID-19; Z91.138 Patient's unintentional underdosing of medication regimen for other reason
CPT/HCPCS: 74177; 80048; 80053; 81003; 82010; 82805; 82962; 83036; 83690; 84484; 85025; 85027; 85610; 87502; 87811; 93005; 96361; 96374; 96375; 97163; 97166; 99291; Q9967

== ENCOUNTER → 2024-11-28 13:29 | Outpatient (REF) | payer MEDICARE, SELFPAY | LOC: RCS 13:29 | PROVIDERS: ATTENDING PHYSICIAN Internal Medicine Cardiovascular Disease; FAMILY PHYSICIAN Internal Medicine | DX: I48.0 Paroxysmal atrial fibrillation (principal); R09.89 Other specified symptoms and signs involving the circulatory and respiratory systems | CPT/HCPCS: 93306; 93880 ==

== ENCOUNTER → 2025-02-13 15:36 | Outpatient (REF) | payer MEDICARE, SELFPAY ==
[2025-02-13 16:37] LABS: INR 2.44; PT 26.5 Sec (11.4-14.6)
== END ==
LOC: REG 15:36
PROVIDERS: ATTENDING PHYSICIAN Internal Medicine Cardiovascular Disease; FAMILY PHYSICIAN Internal Medicine
DX: I48.21 Permanent atrial fibrillation (principal); Z79.01 Long term (current) use of anticoagulants
CPT/HCPCS: 36415; 85610

== ENCOUNTER → 2025-03-04 13:59 | Outpatient (REF) | payer MEDICARE, SELFPAY ==
[2025-03-04 15:53] LABS: INR 2.24; PT 24.9 Sec (11.4-14.6)
== END ==
LOC: REG 13:59
PROVIDERS: ATTENDING PHYSICIAN Internal Medicine Cardiovascular Disease; FAMILY PHYSICIAN Internal Medicine
DX: I48.21 Permanent atrial fibrillation (principal); Z79.01 Long term (current) use of anticoagulants
CPT/HCPCS: 36415; 85610

== ENCOUNTER → 2025-08-15 15:22 | Outpatient (REF) | payer MEDICARE, SELFPAY | LOC: RAD 15:22 | PROVIDERS: ATTENDING PHYSICIAN Internal Medicine | DX: J45.909 Unspecified asthma, uncomplicated (principal) | CPT/HCPCS: 71046 ==